=== PATIENT | male | born 1970 | race Two or more races ===

== ENCOUNTER 2023-11-11 13:26 | Outpatient (CLI) | payer MEDICARE, MEDICAID, OTHER | END 2023-11-11 23:59 | disposition home or self-care (01) | LOC: 64 CT 13:26 | PROVIDERS: ATTEND Nurse Practitioner Family | DX: Z13.6 Encounter for screening for cardiovascular disorders (principal); I10 Essential (primary) hypertension | CPT/HCPCS: 75571 ==